=== PATIENT | male | born 1995 | race African-American/Black ===

== ENCOUNTER 2018-05-23 07:14 | Emergency (ER) | payer SELFPAY ==
[2018-05-23 07:31] VITALS: PULSE 99; TEMP 99.3; BMI 21.7
[2018-05-23] MEDS ORDERED: SODIUM CHLORIDE 1,000 ML IV STA (07:47)
[2018-05-23] MEDS ORDERED: FAMOTIDINE 20 MG/50 ML IVPB 20 MG/50 ML MG IVPB ONE ×2 (07:47→07:51)
[2018-05-23] MEDS ORDERED: ONDANSETRON 4 MG/2 ML VIAL IVPB ONE (07:47)
[2018-05-23] MEDS ORDERED: ONDANSETRON 4 MG/2 ML VIAL ONE (07:51)
--- NOTE | 2018-05-23 07:58 | PDOC ---
History of Present Illness - General Chief Complaint: Vomiting/Diarrhea Stated Complaint: VOMITING Time Seen by Provider: 05/23/18 07:38 History Source: Patient Exam Limitations: No Limitations - History of Present Illness Initial Comments: 05/23/18 07:52 Pt is a 22yo M with no significant PMH presenting to ED with complaints of vomiting x5days. Pt says it started last but says it got worse yesterday. Pt was able to tolerate po until yesterday when he started walking home from work. He says he has vomited (nbnb) multiple times and cannot hold anything down. Associated with diffuse abdominal pain that comes and goes with the vomiting Says he may have felt warm yesterday. Denies chills, cough, urinary symptoms, diarrhea, constipation, bloody stools, flank pain, headache, weakness, lightheadedness, numbness/tingling, cough. No recent travel, did not eat anything out of the ordinary, no sick contacts. Denies IV drug use. Last drink was Tuesday. Last BM yesterday. PMD: none PMH: none PSH: none Meds: none Allergies: nkda Social: occasional alcohol use. Past History - Past Medical History Allergies/Adverse Reactions: Allergies Allergy/AdvReac Type Severity Reaction Status Date / Time No Known Allergies Allergy Verified 05/23/18 07:27 Home Medications: Ambulatory Orders Famotidine [Pepcid -] 20 mg PO BID #28 tablet 05/23/18 Asthma: Yes Cancer: No COPD: No HTN: No Lung CA: No - Surgical History Neurologic Surgery: No - Immunization History Immunization Up to Date: No - Suicide/Smoking/Psychosocial Hx Smoking History: Current some day smoker Have you smoked in the past 12 months: No Information on smoking cessation initiated: No Hx Alcohol Use: No Drug/Substance Use Hx: No Review of Systems - Review of Systems Constitutional: No: Chills, Fever, Weakness HEENTM: No: Symptoms Reported Respiratory: No: Symptoms reported Cardiac (ROS): No: Chest Pain, Lightheadedness, Palpitations, Syncope ABD/GI: Yes: See HPI, Nausea, Vomiting, Abdominal cramping. No: Constipated, Diarrhea, Rectal Bleeding, Tarry Stools : No: Burning, Dysuria, Frequency, Flank Pain Musculoskeletal: No: Back Pain, Joint Pain, Neck Pain Integumentary: No: Rash Neurological: No: Headache, Numbness, Weakness *Physical Exam - Vital Signs Last Vital Signs Temp Pulse Resp BP Pulse Ox 99.3 F 99 H 18 111/73 99 05/23/18 07:25 1218 07:25 12 07:25 05/23/18 07:25 05/23/18 07:25 - Physical Exam General Appearance: Yes: Nourished, Appropriately Dressed, Mild Distress HEENT: positive: EOMI, MAYTE, Other (moist mucosal membranes) Neck: positive: Trachea midline, Supple. negative: Lymphadenopathy (R), Lymphadenopathy (L) Respiratory/Chest: positive: Lungs Clear, Normal Breath Sounds. negative: Crackles, Rhonchi, Stridor, Wheezing Cardiovascular: positive: Regular Rhythm, Regular Rate, S1, S2. negative: Edema , JVD, Murmur Vascular Pulses: Carotid (R): 2+, Carotid (L): 2+, Dorsalis-Pedis (R): 2+, Doralis-Pedis (L): 2+ Gastrointestinal/Abdominal: positive: Normal Bowel Sounds, Soft, Tenderness ( diffuse, greatest in LUQ and epigastric). 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 NML intact, Fully Oriented, Alert, Normal Mood/ Affect, Normal Response, Motor Strength 5/5 Moderate Sedation - Procedure Monitoring Vital Signs: Procedure Monitoring Vital Signs Temperature 99.3 F 05/23/18 07:25 Pulse Rate 99 H 05/23/18 07:25 Respiratory Rate 18 05/23/18 07:25 Blood Pressure 111/73 05/23/18 07:25 O2 Sat by Pulse Oximetry (%) 99 05/23/18 07:25 ED Treatment Course - LABORATORY CBC & Chemistry Diagram: 05/23/18 08:09 05/23/18 08:09 Medical Decision Making - Medical Decision Making 05/23/18 07:58 Pt is a 22yo M with no significant PMH presenting to ED with complaints of vomiting x5days. Pt says it started last but says it got worse yesterday. Pt was able to tolerate po until yesterday. He says he has vomited ( nbnb) multiple times and cannot hold anything down. Associated with diffuse abdominal pain. Says he may have felt warm yesterday. Denies chills, cough, urinary symptoms, diarrhea, constipation, bloody stools, flank pain, headache, weakness, lightheadedness, numbness/tingling, cough. No recent travel, did not eat anything out of the ordinary, no sick contacts. Denies IV drug use. Last drink was Tuesday. Last BM yesterday. Vitals: HR 99 otherwise wnl PE: diffuse, greatest LUQ and epigastric tenderness. DDx includes but not limited to cholecystitis, appendicitis, pancreatitis, PUD, hepatitis, colitis, sbo, nephrolithiasis, pyelonephritis, gastritis -cbc, cmp, lac, lipase. Given IVF, Zofran and Pepcid. Morphine for pain. Deferring labs at this time given no RUQ or Pierre's sign, no RLQ, negative rosving an psoas/obturator sign. 05/23/18 09:18 T. Bili elevated at 2.8 Adding on Direct bili. All other labs wnl. Pt feeling better with morphine. D. bili 0.3 Pt most likely has gastritis. Will give Rx for pepcid. Given Referral to GI. Given diet precautions and return precautions. He is hemodynamically stable. Will DC home. *DC/Admit/Observation/Transfer Diagnosis at time of Disposition: Vomiting Qualifiers: Vomiting type: unspecified Vomiting Intractability: non-intractable Nausea presence: with nausea Qualified Code(s): R11.2 - Nausea with vomiting, unspecified - Discharge Dispostion Disposition: HOME Condition at time of disposition: Stable - Prescriptions Prescriptions: Famotidine [Pepcid -] 20 mg PO BID #28 tablet - Referrals Referrals: Yuan Kaufman MD [Primary Care Provider] - Dexter Joiner MD [Staff Physician] - - Patient Instructions Printed Discharge Instructions: DI for Vomiting -- Adult Additional Instructions: You were seen here today for vomiting. Your lab tests are normal. You most likely have gastritis, inflammation of the stomach which can be caused by a virus. I recommend you drink fluids and try not to eat solid foods at this time. Slowly advance to soups, bread, rice, bananas then if you can tolerate those, you can progress to solid foods. Stay away from acidic foods, spicy foods and alcohol. A prescription for Pepcid has been sent to your pharmacy. Take it twice a day for 2 weeks. I recommend you see a GI doctor fo further management and evaluation of your symptoms. -Dr. Joiner Come back to the emergency room if your pain gets worse, you start vomiting blood, you start having blood in the stool, you develop fever or if any new concerning symptom develops. Thank you - Post Discharge Activity
[2018-05-23 08:37] LABS: BASO % 0.3 % (0-2.0); EOS % 0.3 % (0-4.5); HEMATOCRIT 46.5 % (35.4-49); HEMOGLOBIN 15.3 GM/dL (11.7-16.9); LYMPH % 4.5 % (8-40); MCH 31.4 pg (25.7-33.7); MEAN CELL VOLUME 95.2 fl (80-96); MEAN PLT VOLUME 7.2 fl (7.5-11.1); MONO % 7.4 % (3.8-10.2); NEUT % 87.5 % (42.8-82.8); PLATELET COUNT 344 K/MM3 (134-434); RBC 4.88 M/mm3 (4.00-5.60); RDW 13.3 % (11.9-15.9); WHITE BLOOD COUNT 8.7 K/mm3 (4.0-10.0)
[2018-05-23 08:37] LABS: URINE APPEARANCE CLEAR; URINE BILIRUBIN NEGATIVE (<2.0 mg/dL); URINE COLOR YELLOW; URINE GLUCOSE (UA) NEGATIVE (NEGATIVE); URINE KETONE TRACE (NEGATIVE); URINE LEUK ESTERASE NEGATIVE (NEGATIVE); URINE NITRITE NEGATIVE (NEGATIVE); URINE PROTEIN 1+ (NEGATIVE); URINE UROBILINOGEN 4.0 E.U/dl mg/dL (0.2-1.0)
[2018-05-23 08:40] LABS: EPI CELLS RARE /HPF (FEW); URINE MUCUS RARE
[2018-05-23] MEDS ORDERED: morphine CARPU-JECT 4 MG/1 ML DISP.SYRIN IVPUSH ONE (08:40)
[2018-05-23] MEDS ORDERED: MORPHINE SULFATE 2 MG/ML VIAL ONE (08:46)
[2018-05-23 08:53] LABS: ALBUMIN 4.4 g/dl (3.4-5.0); ALK PHOS 77 U/L (45-117); ANION GAP 9 MMOL/L (8-16); BILIRUBIN,TOTAL 2.8 mg/dL (0.2-1); BLOOD UREA NITROGEN 20 mg/dL (7-18); CALCIUM 9.3 mg/dL (8.5-10.1); CHLORIDE 103 mmol/L (98-107); CO2 26 mmol/L (21-32); CREATININE 1.2 mg/dL (0.55-1.3); GLUCOSE,RANDOM 100 mg/dL (74-106); LIPASE 168 U/L (73-393); SGOT/AST 26 U/L (15-37); SGPT/ALT 29 U/L (13-61); SODIUM 138 mmol/L (136-145); TOT PROT 7.5 g/dl (6.4-8.2)
[2018-05-23 08:55] VITALS: BP 128/76
--- NOTE | 2018-05-23 09:06 | PDOC ---
Attending Attestation - Resident Resident Name: Maria R Chance - ED Attending Attestation I have performed the following: I have examined & evaluated the patient, The case was reviewed & discussed with the resident, I agree w/resident's findings & plan - HPI HPI: 05/23/18 09:02 Healthy 22-year-old male presents for intermittent upper abdominal pain with nausea/vomiting 3-4 days. Localized epigastric pain that is nonradiating, sharp , intermittent and not necessarily brought on by food. The pain occurs mostly with nausea and then is resolved with vomiting, which is nonbloody nonbilious. Normal bowel movements without melena or bright red blood, no fevers or chills, recent appetite and sensation of bloating. No history of gastritis or recurrent GI issues, never required endoscopy. Denies excessive NSAID/alcohol use, no antibiotic recently, no recent travel or sick contacts, does smoke marijuana. - Physicial Exam PE: 05/23/18 09:04 Afebrile, vital signs stable No jaundice or pallor, slightly dry mucosa, otherwise well-appearing Heart is regular, lungs are clear Abdomen is soft and nondistended. Tender in the epigastric region with guarding , no rebound. Bowel sounds are normal. No CVA tenderness. No lower abdominal tenderness. No palpable hernias. - Medical Decision Making 05/23/18 09:04 22-year-old male presents with intermittent epigastric pain with nausea/ vomiting for several days, localized epigastric discomfort most consistent with gastritis, rule out biliary or pancreatic etiology. Not consistent with obstruction, vital signs are normal. Check labs IV fluids, pain control, antacid, antiemetic No indication for emergent imaging, we'll reassess
[2018-05-23 09:35] LABS: BILIRUBIN,DIRECT 0.3 mg/dL (0.0-0.2)
== END 2018-05-23 10:33 | disposition home or self-care (01) ==
LOC: JER 07:14
PROC: 3E033GC Introduction of Other Therapeutic Substance into Peripheral Vein, Percutaneous Approach (ICD-10-PCS; principal; 2018-05-23)
PROC: 3E033NZ Introduction of Analgesics, Hypnotics, Sedatives into Peripheral Vein, Percutaneous Approach (ICD-10-PCS; 2018-05-23)
PROC: 3E0337Z Introduction of Electrolytic and Water Balance Substance into Peripheral Vein, Percutaneous Approach (ICD-10-PCS; 2018-05-23)
DX: R11.2 Nausea with vomiting, unspecified (principal); J45.909 Unspecified asthma, uncomplicated; F17.210 Nicotine dependence, cigarettes, uncomplicated
CPT/HCPCS: 36415; 80053; 81003; 81015; 82248; 83605; 83690; 85025; 99282-25; J7030